=== PATIENT | female | born 2000 | race African-American/Black ===

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

== ENCOUNTER 2018-04-19 18:16 | Emergency (ER) | payer OTHER ==
[~2018-04-19] VITALS: Ht 165.1 cm; Wt 52.2 kg
[~2018-04-19 18:16] MED LIST: MOBIC15 MG PO
[2018-04-19] MEDS ORDERED: NORFLEX100 MG PO (18:49)
[2018-04-19] MEDS ORDERED: IBUPROFEN 800800 M1 PO (18:49)
[2018-04-19 19:15] VITALS: BP 102/78
== END 2018-04-19 19:17 | disposition home or self-care (01) ==
LOC: ER 18:16
DX: M54.16 Radiculopathy, lumbar region (principal)

== ENCOUNTER 2019-11-25 23:04 | Emergency (ER) | payer OTHER ==
[~2019-11-25] VITALS: Ht 165.1 cm; Wt 57.6 kg
[~2019-11-25 23:04] MED LIST changes: +IBUPROFEN 800800 M1 PO; +NORFLEX100 MG PO
[2019-11-26 00:13] LABS: URINE BILIRUBIN NEGATIVE (Negative); URINE BLOOD 3+ (Negative); URINE CLARITY SL CLOUDY; URINE COLOR YELLOW; URINE GLUCOSE-RANDOM* NEGATIVE (Negative); URINE KETONES 1+ (Negative); URINE LEUKOCYTES-REFLEX NEGATIVE (Negative); URINE NITRITE-REFLEX NEGATIVE (Negative); URINE PROTEIN (DIPSTICK) TRACE (Negative); URINE SPECIFIC GRAVITY 1.025 (1.005-1.035); URINE UROBILINOGEN 0.2 E.U./dl (0.2-1.0)
[2019-11-26 00:40] LABS: SQUAMOUS 4-10 Moderate /LPF (0-3)
[2019-11-26 00:41] LABS: BACTERIA-REFLEX 1-9 Few /HPF (None Seen); CASTS None Seen /LPF (None Seen); CRYSTALS None Seen /LPF (None Seen); MUCUS 4-6 Moderate strn/LPF (None Seen); URINE RBC 3-10 Few /HPF (0-2); URINE WBC-REFLEX 0-5 Rare /HPF (0-5)
[2019-11-26 00:42] LABS: ABSOLUTE NEUTROPHILS 2.8 thou/uL (1.4-8.2); BASOPHILS 0.3 % (0.0-2.0); CALCIUM 9.5 mg/dL (8.5-10.1); CREATININE 0.7 mg/dL (0.6-1.0); EOSINOPHILS 2.7 % (0.0-3.0); HEMATOCRIT 40.4 % (37.0-47.0); HEMOGLOBIN 13.5 gm/dL (12.0-15.0); LYMPHOCYTES 33.1 % (24.0-44.0); MCH 31.4 pg (26.0-34.0); MCHC 33.5 g/dL (28.0-37.0); MCV 93.9 fL (80.0-100.0); MONOCYTES 9.7 % (1.0-8.0); PLATELET COUNT 259 thou/uL (150-400); POLYS 54.2 % (36.0-66.0); POTASSIUM 4.2 mmol/L (3.5-5.1); RBC 4.31 mil/uL (4.20-5.00); RDW 12.7 % (10.5-14.5); WBC 5.2 thou/uL (4.0-11.0)
[2019-11-26 00:48] LABS: ALBUMIN 4.2 g/dL (3.4-5.0); TOTAL BILIRUBIN 1.6 mg/dL (<0.1-1.0); TOTAL PROTEIN 7.5 g/dL (6.4-8.2)
[2019-11-26] MEDS ORDERED: NAPROXEN375 MG PO (03:00)
[2019-11-26 03:34] VITALS: BP 115/83
== END 2019-11-26 03:38 | disposition home or self-care (01) ==
LOC: ER 23:04
PROVIDERS: Emergency Medicine
DX: N76.0 Acute vaginitis (principal); N94.6 Dysmenorrhea, unspecified; R35.0 Frequency of micturition

== ENCOUNTER 2020-04-16 01:54 | Emergency (ER) | payer OTHER ==
[~2020-04-16] VITALS: Ht 165.1 cm; Wt 58.1 kg
[~2020-04-16 01:54] MED LIST changes: +NAPROXEN375 MG PO
[2020-04-16] MEDS ORDERED: NOHOMEMEDICATIONS (02:17)
[2020-04-16 08:08] LABS: ABSOLUTE NEUTROPHILS 6.5 thou/uL (1.4-8.2); BASOPHILS 0.7 % (0.0-2.0); EOSINOPHILS 1.4 % (0.0-3.0); HEMATOCRIT 37.2 % (37.0-47.0); HEMOGLOBIN 12.8 gm/dL (12.0-15.0); LYMPHOCYTES 20.4 % (24.0-44.0); MCH 31.2 pg (26.0-34.0); MCHC 34.3 g/dL (28.0-37.0); MCV 90.9 fL (80.0-100.0); MONOCYTES 9.2 % (1.0-8.0); PLATELET COUNT 189 thou/uL (150-400); POLYS 68.3 % (36.0-66.0); RDW 13.1 % (10.5-14.5); WBC 9.5 thou/uL (4.0-11.0)
[2020-04-16 08:18] LABS: CALCIUM 9.6 mg/dL (8.5-10.1); CREATININE 0.6 mg/dL (0.6-1.0); POTASSIUM 3.8 mmol/L (3.5-5.1)
[2020-04-16 08:24] LABS: ALBUMIN 3.9 g/dL (3.4-5.0); DIRECT BILIRUBIN 0.1 mg/dL (<0.1-0.2); TOTAL BILIRUBIN 0.6 mg/dL (0.2-1.0); TOTAL PROTEIN 7.5 g/dL (6.4-8.2)
[2020-04-16 08:59] VITALS: BP 113/64
== END 2020-04-16 09:00 | disposition home or self-care (01) ==
LOC: ER 01:54
PROVIDERS: Emergency Medicine
DX: O99.511 Diseases of the respiratory system complicating pregnancy, first trimester (principal); J02.9 Acute pharyngitis, unspecified; O26.891 Other specified pregnancy related conditions, first trimester; R10.9 Unspecified abdominal pain; Z3A.08 8 weeks gestation of pregnancy